=== PATIENT | female | born 1995 | race Caucasian/White ===

== ENCOUNTER 2017-01-15 00:05 | Emergency (ER) | payer OTHER ==
[~2017-01-15] VITALS: Ht 157.5 cm; Wt 67.1 kg
--- OUTSIDE RECORDS SUMMARY | 2017-01-15 00:11 | XMS REPORT ---
Author Author Laurie Gonzalez Organization [facility] Address [address] [place], [place] [id number] Care Team Providers Care Leather Seasoner Name Role Phone Laurie Gonzalez PCP Unavailable Allergies and Adverse Reactions Name Reaction Notes NO KNOWN DRUG ALLERGIES Plan of Treatment Planned Activity Comments Planned Date Planned Time Plan/Goal CBC With Auto Differential 08/30/2016 12:00 AM CMP (comprehensive metabolic panel) 08/30/2016 12:00 AM .Lipid Panel 08/30/2016 12:00 AM Urinalysis with C/S If Indicated 08/30/2016 12:00 AM TSH 08/30/2016 12:00 AM T4, Free 08/30/2016 12:00 AM T3 free 08/30/2016 12:00 AM EKG (12-lead electrocardiogram) 08/30/2016 12:00 AM Medications Active Name Start Date Estimated Completion Date SIG Comments Control Pills, Unsure of name Toprol XL 25 mg oral tablet extended release 24 hr 08/30/2016 02/26/2017 take 1 tablet by oral route once a day (at bedtime) for 90 days Problem List Not available. Vital Signs Date Time BP-Sys(mm[Hg] BP-Becki(mm[Hg]) HR(bpm) RR(rpm) Temp WT HT HC BMI BSA BMI Percentile O2 Sat(%) 08/30/2016 3:41:00 PM 144 mmHg 84 mmHg 115 bpm 20 rpm 9.8 F 142.5 lbs 62 in 26.06 kg/m2 1.68 m2 84.8 % 99 % Social History Name Description Comments No Alcohol Use non smoker Denies illicit substance abuse History of Procedures Date Ordered Description Order Status 08/30/2016 12:00 AM MENINGOCOCCAL VACCINE IM Reviewed Results Summary Not available. History Of Immunizations Name Date Admin Mfg Name Mfg Code Trade Name Lot# Route Inj Vis Given Vis Pub CVX Meningococcal 08/30/2016 Epoxy. NOV Menveo [id number] Intramuscular Left Deltoid 08/30/2016 07/06/2015 114 History of Past Illness Name Date of Onset Comments HEADACHES Loose stools 08/30/2016 - possible IBS, controls with diet at this point HTN (hypertension) Essential hypertension Aug 30 2016 3:47PM Encounter for vaccination Aug 30 2016 3:47PM Palpitation Aug 30 2016 3:47PM Family history of heart disease Aug 30 2016 3:47PM Payers Insurance Name Company Name Plan Name Plan Number Policy Number Policy Group Number Start Date [facility] [id number] Friday, 2015 [facility] [employer] [id number] Friday, 2015 History of Encounters Visit Date Visit Type Provider 08/30/2016 Office visit Laurie Gonzalez APRN
--- OUTSIDE RECORDS SUMMARY | 2017-01-15 00:12 | XMS REPORT ---
Author Author Laurie Gonzalez Organization [facility] Address [address] [place], [place] [id number] Care Team Providers Care Beauty Sales Consultant Name Role Phone Laurie Gonzalez PCP Unavailable [...] AM EKG (12-lead electrocardiogram) 08/30/2016 12:00 AM CBC With Auto Differential 09/03/2016 12:00 AM CMP (comprehensive metabolic panel) 09/03/2016 12:00 AM .Lipid Panel 09/03/2016 12:00 AM Urinalysis with C/S If Indicated 09/03/2016 12:00 AM TSH 09/03/2016 12:00 AM T4, Free 09/03/2016 12:00 AM T3 free 09/03/2016 12:00 AM Medications Active Name Start Date [...] 08/30/2016 12:00 AM MENINGOCOCCAL VACCINE IM Reviewed 09/03/2016 12:00 AM ROUTINE VENIPUNCTURE Reviewed Results Summary Not available. History Of Immunizations Name Date Admin Mfg Name Mfg Code Trade Name Lot# Route Inj Vis Given Vis Pub CVX Meningococcal 08/30/2016 [employer]. NOV Jessika [id number] Intramuscular Left Deltoid 08/30/2016 07/06/2015 114 History of Past Illness Name Date of Onset Comments HEADACHES Loose stools 08/30/2016 - possible IBS, controls with diet at this point HTN (hypertension) Essential hypertension Aug 30 2016 3:47PM Encounter for vaccination Aug 30 2016 3:47PM Palpitation Aug 30 2016 3:47PM Family history of heart disease Aug 30 2016 3:47PM Essential hypertension Sep 03 2016 9:38AM Encounter for vaccination Sep 03 2016 9:38AM Palpitation Sep 03 2016 9:38AM Family history of heart disease Sep 03 2016 9:38AM Payers Insurance Name Company Name Plan Name Plan Number Policy Number Policy Group Number Start Date [facility] [id number] Friday, 2015 [employer] [id number] Friday, 2015 History of Encounters Visit Date Visit Type Provider 09/03/2016 Laboratory Laurie Gonzalez APRN 08/30/2016 Office visit Laurie Gonzalez APRN
--- OUTSIDE RECORDS SUMMARY | 2017-01-15 00:12 | XMS REPORT | Continuity of Care Document ---
Author Author [facility] Organization [facility] Address Unknown Phone Unavailable Allergies Medications Problems Procedures Results Encounters ACCT No. Visit Date/Time Discharge Status Pt. Type Provider Facility Loc./Unit Complaint [id number] 10/16/2016 14:07:00 10/16/2016 23: 59:59 CLS Outpatient Raúl Grewal [id number] 09/03/2016 10:20:33 09/03/2016 23: 59:59 CLS Outpatient Laurie Gonzalez [id number] 08/30/2016 16:35:29 08/30/2016 23: 59:59 CLS Outpatient Laurie Gonzalez
--- OUTSIDE RECORDS SUMMARY | 2017-01-15 00:12 | XMS REPORT ---
Author Author Laurie Gonzalez Organization [facility] Address [address] [place], [place] [id number] Care Team Providers Care Labor Specialist Name Role Phone Laurie Gonzalez PCP Unavailable [...] Vis Given Vis Pub CVX Meningococcal 08/30/2016 [employer]. NOV Jessika [id number] Intramuscular Left Deltoid 08/30/2016 07/06/2015 114 History [...] Policy Number Policy Group Number Start Date [facility] [id number] Friday, 2015 [employer] [id number] Friday, 2015 History of Encounters Visit Date Visit Type Provider 09/03/2016 Laboratory Laurie Gonzalez APRN 08/30/2016 Office visit Laurie Gonzalez APRN
--- NOTE | 2017-01-15 00:32 | ED Lower Extremity ---
General Chief Complaint: Lower Extremity Stated Complaint: BOTH HEELS SWOLLEN Source: patient Exam Limitations: no limitations History of Present Illness Time seen by provider: 00:21 Initial Comments Patient presents to ER by private conveyance with a chief complaint that for the past 3 or 4 days she has had heel pain bilaterally. She has not had any traumatic fall, jumping from any surfaces, stream workout, car wreck or other trauma to the heels. She does not produce patent any kind of exercise or sports or cheer. She is a [employer] student. She says about the time the pain came on is when she had just bought a new pair of Shoes that had a small lift to them. She has subsequently stop wearing the shoes and wearing tennis shoes. She has been keeping her feet elevated but has not use Tylenol, ibuprofen, ankle wrap, ice. She also recently resumed an antibiotic for her acne but she is not sure what it is. She has not had any for quinolones recently. Constitutional: No chills, No diaphoresis EENTM: No double vision, No eye pain Respiratory: No cough, No dyspnea on exertion Cardiovascular: No palpitations, No syncope Gastrointestinal: No melena, No nausea Genitourinary: No discharge, No dysuria : No Musculoskeletal: see HPI (bilateral heel pad pain), No joint pain, No joint swelling Skin: No pruritus, No rash Psychiatric/Neurological: Denies Headache, Denies Numbness Past [id number]-[id number] Hx Patient Social History Alcohol Use: Denies Use Recreational Drug Use: No Smoking Status: Never a Smoker Recent Foreign Travel: No Contact w/Someone Who Travel: No Physical Exam Vital Signs Capillary Refill : General Appearance: WD/WN, no apparent distress HEENT: PERRL/EOMI, pharynx normal Neck: non-tender, normal inspection Cardiovascular: normal peripheral pulses, regular rate, rhythm Respiratory: chest non-tender, lungs clear Gastrointestinal: normal bowel sounds, non tender Legs: bilateral leg non-tender, bilateral leg normal inspection, bilateral leg normal range of motion, bilateral leg no evidence of injury Knees: bilateral knee non-tender, bilateral knee normal inspection, bilateral knee normal range of motion, bilateral knee no evidence of injury Ankles: bilateral ankle non-tender, bilateral ankle normal inspection, bilateral ankle normal range of motion, bilateral ankle no evidence of injury Feet: bilateral foot normal inspection, bilateral foot normal range of motion, bilateral foot soft tissue tenderness (heel pads midline to medial to direct palpation.) Neurologic/Tendon: normal sensation, normal motor functions, normal tendon functions, responds to pain Neurologic/Psychiatric: alert, normal mood/affect, oriented x 3 Skin: normal color, warm/dry Departure Impression Impression: Primary Impression: Heel pain, bilateral Disposition: 01 HOME, SELF-CARE Condition: Stable Departure-Patient Inst. Decision time for Depature: 00:32 Referrals: [facility] (PCP/Family) Primary Care Physician Patient Instructions: Heel Pain (Caused by Plantar Fasciitis) (DC) Add. Discharge Instructions: Review the literature in the handout and take your ankle at per the instructions and do the exercises. Take Naprosyn one capsule twice a day or ibuprofen 3 tablets 3 times a day for the next 2 weeks on a schedule. You may apply ice to your heels and keep them elevated when possible for pain. You may also use Tylenol 1000 mg every 8 hours as needed. If you're not seeing some improvement by 2-4 weeks then you can go to [facility] for further evaluation and management. All discharge instructions reviewed with patient and/ or family. Voiced understanding. ALE BERGMAN Jan 15, 2017 00:31
== END 2017-01-15 00:37 | disposition home or self-care (01) ==
LOC: ER 00:08
DX: M79.672 Pain in left foot (principal); M79.671 Pain in right foot
CPT/HCPCS: 99283